=== PATIENT | female | born 1980 | race Two or more races ===

== ENCOUNTER 2019-02-20 18:04 | Emergency (ER) | payer OTHER ==
[~2019-02-20] VITALS: Ht 170.2 cm; Wt 77.1 kg
[2019-02-20] MEDS ORDERED: LEVAQUIN500 MG PO (18:32)
[2019-02-20] MEDS ORDERED: DICLOFENAC POTA50 MG PO (18:33)
== END 2019-02-21 09:14 | disposition home or self-care (01) ==
LOC: ER 18:04
DX: N61.0 Mastitis without abscess (principal); T81.40XA Infection following a procedure, unspecified, initial encounter; B99.8 Other infectious disease

== ENCOUNTER → 2019-02-24 12:46 | Outpatient (CLI) | payer OTHER ==
[~2019-02-24 12:46] MED LIST: DICLOFENAC POTA50 MG PO; LEVAQUIN500 MG PO
== END | disposition home or self-care (01) ==
LOC: LAB 12:46
DX: B95.61 Methicillin susceptible Staphylococcus aureus infection as the cause of diseases classified elsewhere (principal)